=== PATIENT | male | born 1975 | race Caucasian/White ===

== ENCOUNTER 2016-08-22 13:02 | Emergency (ER) | payer OTHER ==
[~2016-08-22] VITALS: Wt 89.0 kg
--- NOTE | 2016-08-22 14:34 | ERA ---
ER Documentation Chief Complaint Date/Time DATE: 08/22/16 TIME: 14:33 Chief Complaint UPPER BACK PAIN FOR THE PAST WEEK. MILD NUMBNESS TO ARMS HPI The patient is a 40-year-old male, presenting to the ER because of upper back pain within the scapulas after heavy lifting about 5 weeks ago. He has been seen by his physician who order for an MRI. He has been seen at [facility]. He denies fever, chills, neck pain, chest pain, palpitation, diaphoresis, abdominal pain, vomiting, dysuria, diarrhea, fecal or urinary incontinence. He smokes socially, denies drinking, denies history of IV drug abuse. He complains of tingling on right first second and third finger Past medical history: None Past surgical history: Right inguinal herniorrhaphy ROS All systems reviewed and are negative except as per history of present illness. Medications Home Meds Active Scripts Tramadol HCl (Tramadol HCl) 50 Mg Tablet, 50 MG PO Q6 Y for PAIN, #20 TAB Prov:IAN ESTEVES MD 08/22/16 Carisoprodol* (Soma*) 350 Mg Tablet, 350 MG PO TID Y for MUSCLE SPASMS, #15 TAB Prov:IAN ESTEVES MD 08/22/16 Physical Exam Vitals Vital Signs Date Time Temp Pulse Resp B/P Pulse Ox O2 Delivery O2 Flow Rate FiO2 08/22/16 13:16 98.4 100 20 137/81 95 Physical Exam Const: No acute distress. Head: Atraumatic. Eyes: Normal Conjunctiva. ENT: Normal External Ears, Nose and Mouth. Neck: Full range of motion. No meningismus. Resp: Clear to auscultation bilaterally. Cardio: Regular rate and rhythm, no murmurs. Abd: Soft, non distended, normal bowel sounds, non tender. Skin: No petechiae or rashes. Back: No midline or flank tenderness. No spinal tenderness Ext: No cyanosis, or edema. Neur: Awake and alert. No focal deficit Psych: Normal Mood and Affect. Procedures/MDM MEDICAL MAKING DECISION: The patient is a 40-year-old male, presenting with acute upper back pain after heavy lifting. He is stable for outpatient follow- up. He is awaiting for MRI. The differential diagnoses considered include but are not limited to caudal equina syndrome, spinal abscess, DJD, diskitis, lumbar radiculopathy. Departure Diagnosis: Primary Impression: Back pain Condition: Good Comments He was discharged with [place] and [place] I discussed the findings with the patient. I advised the patient to follow-up with the primary physician in about 1-2 days, sooner if needed and return if any concern. The patient's blood pressure was elevated (>120/80) but appears stable without evidence of hypertension emergency or urgency. The patient was counseled about the risks of hypertension and urged to pursue outpatient monitoring and therapy within a week with their primary care physician. IAN ESTEVES MD Aug 22, 2016 14:33
[2016-08-22] MEDS ORDERED: TRAM50TA2 PO (14:44)
[2016-08-22] MEDS ORDERED: CARI350T PO (14:44)
[2016-08-22 15:20] VITALS: BP 152/79; PULSE 92; RESP 20; TEMP 98.4
== END 2016-08-22 15:24 | disposition home or self-care (01) ==
LOC: FTE 13:02
DX: S29.9XXA Unspecified injury of thorax, initial encounter (principal); X50.0XXA Overexertion from strenuous movement or load, initial encounter; Y92.9 Unspecified place or not applicable
CPT/HCPCS: 99284

== ENCOUNTER 2016-09-09 09:45 | Emergency (ER) | payer OTHER ==
[~2016-09-09] VITALS: Wt 85.0 kg
[~2016-09-09 09:45] MED LIST: CARI350T PO; TRAM50TA2 PO
[2016-09-09] MEDS ORDERED: ACETAMINOPHEN 500 MG TAB PO STA (11:34)
--- NOTE | 2016-09-09 11:45 | ERD ---
ER Documentation Chief Complaint Date/Time DATE: 09/09/16 TIME: 11:42 Chief Complaint COUGH/RUNNY NOSE X 2 WEEKS HPI This 40-year-old male who presents to the emergency department today complaining of cough for the past 2 weeks. Patient states she has also had some green nasal discharge. Patient states he smokes cigarettes and abuses drugs. States he has a history of hepatitis C. Patient indicated he is homeless. States that he feels chilled. Has any nausea vomiting or diarrhea ROS All systems reviewed and are negative except as per history of present illness. Medications Home Meds Active Scripts Fluticasone Propionate (Flonase Allergy Relief) 9.9 Ml [place].susp, 2 SPRAY NASAL DAILY, #1 BOTTLE TO EACH NOSTRIL Prov:DEVENDRA QUEEN PA-C 09/09/16 Albuterol Sulfate* (Proair HFA*) 8.5 Gm Hfa.aer.ad, 2 PUFF INH Q4, #1 INHALER Prov:DEVENDRA QUEEN PA-C 09/09/16 Acetaminophen* (Tylophen*) 500 Mg Capsule, 1 CAP PO Q6H Y for PAIN AND OR ELEVATED TEMP, #30 CAP Prov:DEVENDRA QUEEN PA-C 09/09/16 Ibuprofen* (Motrin*) 800 Mg Tab, 800 MG PO Q6, #30 TAB Prov:DEVENDRA QUEEN PA-C 09/09/16 Azithromycin* (Zithromax*) 250 Mg Tablet, 250 MG PO .ZPACK DIRECTED, #6 TAB TAKE 500 MG (2 TABS) THE FIRST DAY THEN 250 MG (1 TAB) DAYS 2-5 Prov:DEVENDRA QUEEN PA-C 09/09/16 Tramadol HCl (Tramadol HCl) 50 Mg Tablet, 50 MG PO Q6 Y for PAIN, #20 TAB Prov:IAN ESTEVES MD 08/22/16 Carisoprodol* (Soma*) 350 Mg Tablet, 350 MG PO TID Y for MUSCLE SPASMS, #15 TAB Prov:IAN ESTEVES MD 08/22/16 Physical Exam Vitals Vital Signs Date Time Temp Pulse Resp B/P Pulse Ox O2 Delivery O2 Flow Rate FiO2 09/09/16 10:00 101.2 123 18 125/71 99 Physical Exam Const: No acute distress Head: Atraumatic Eyes: Normal Conjunctiva ENT: Ears TMs normal. Nose no drainage. Throat no erythema no exudate Neck: Full range of motion..~ No meningismus. Resp: Clear to auscultation bilaterally. No Absent breath sounds. No wheezing. Cardio: Regular rate and rhythm, no murmurs Abd: Soft, non tender, non distended. Normal bowel sounds Skin: No petechiae or rashes Neur: Awake and alert Psych: Normal Mood and Affect Results 24 hrs Current Medications Medications (Trade) Dose Ordered Sig/Daniel Route PRN Reason Start Time Stop Time Status Last Admin Dose Admin Acetaminophen (Tylenol Tab) 1,000 mg ONCE STAT PO 09/09/16 11:34 09/09/16 11:35 DC 09/09/16 11:49 DIAGNOSTIC IMAGING REPORT Patient: RUSS STEPHENS : 1975 Age: 40 Sex: M MR #: [id number] DOS: 09/09/16 0000 Ordering MD: DEVENDRA QUEEN PA-C Location: [facility] Room/Bed: PROCEDURE: XR Chest. CLINICAL INDICATION: Cough/fever TECHNIQUE: Chest AP portable. COMPARISON: No comparison available. FINDINGS: The mediastinal structures are unremarkable. The heart is normal in size and configuration. The pulmonary vascularity is normal. The lung alegre are unremarkable. No consolidation is identified. The pleural spaces are unremarkable. The axial skeleton is unremarkable. IMPRESSION: No active intrathoracic disease. RPTAT: HGDB .Yash Andrade MD, MD Date Time Electronically viewed and signed by .Yash Andrade MD, MD on 09/09/2016 13:06 .B/ CC: DEVENDRA QUEEN PA-C Procedures/MDM This 40-year-old male who presents to the emergency department today complaining of cough for the past 2 weeks. Patient was febrile here in the emergency department and never did obtain a chest x-ray. Chest x-ray is negative. Lung alegre are unremarkable. There is no consolidation. Pleural spaces are unremarkable. No suspicion for PE, pneumonia, abscess, pneumothorax. Patient was given Tylenol here in the emergency department or his fever. Patient will be given a prescription for azithromycin to treat possible bronchitis. Also considered sinusitis given that the patient has been complaining of green nasal discharge however a film of antibiotic coverage given the patient's social circumstances and the fact that he is a smoker and elected to treat his cough at this time. I have low suspicion for strep pharyngitis, peritonsillar abscess, retropharyngeal abscess, otitis media, PNA, abscess, meningitis, sepsis, or other acute infectious bacterial process. Patient will also be given a prescription for Tylenol, Motrin, albuterol inhaler and Flonase as well Was counseled for greater than 3 minutes to stop smoking as well as to stop abusing drugs. At this time the patient is stable for discharge and outpatient management. They should follow up with their PCP in the next 1-2. They may return to the emergency department sooner if symptoms persist or worsen. Patient understood and agreed with the plan. Departure Diagnosis: Primary Impression: Cough Condition: DEVENDRA Arredondo PA-C Sep 09, 2016 11:45
--- NOTE | 2016-09-09 13:06 | RADRPT ---
PROCEDURE: XR Chest. CLINICAL INDICATION: Cough/fever TECHNIQUE: Chest AP portable. COMPARISON: No comparison available. FINDINGS: The mediastinal structures are unremarkable. The heart is normal in size and configuration. The pu lmonary vascularity is normal. The lung alegre are unremarkable. No consolidation is identified. The pleural spaces are unremarkable. The axial skeleton is unremarkable. IMPRESSION: No active intrathoracic disease. RPTAT: HGDB .Yash Andrade MD, MD Date Time Electronically viewed and signed by .Yash Andrade MD, MD on 09/09/2016 13:06 .B/
[2016-09-09] MEDS ORDERED: IBUP800T25 PO (13:17)
[2016-09-09] MEDS ORDERED: ALBU8.5H3 INH (13:17)
[2016-09-09] MEDS ORDERED: AZIT250T94 PO (13:17)
[2016-09-09] MEDS ORDERED: ACET500C5 PO (13:17)
[2016-09-09] MEDS ORDERED: FLUT9.9S NASAL (13:18)
== END 2016-09-09 13:57 | disposition home or self-care (01) ==
LOC: FTE 09:45
DX: R05 Cough (principal); F17.210 Nicotine dependence, cigarettes, uncomplicated
CPT/HCPCS: 71010; Z7502; Z7610

== ENCOUNTER 2016-09-27 21:20 | Emergency (ER) | payer OTHER ==
[~2016-09-27] VITALS: Ht 175.3 cm; Wt 81.2 kg
[~2016-09-27 21:20] MED LIST changes: +ACET500C5 PO; +ALBU8.5H3 INH; +AZIT250T94 PO; +FLUT9.9S NASAL; +IBUP800T25 PO
[2016-09-27 21:25] VITALS: Ht 175.3 cm; Wt 81.2 kg
--- NOTE | 2016-09-27 23:35 | ERD ---
ER Documentation Chief Complaint Date/Time DATE: 09/27/16 TIME: 23:34 Chief Complaint LUMP ON RIGHT UPPER CHEST NOTICED 3 DAYS AGO HPI 40-year-old male presents here in emergency department for complaints of a lump on the right upper chest area noticed 3 days ago. Patient describes the pain as sharp pain, 4/10 scale, is worse upon touching the area. Patient started to have the pain on affected area and feels some prominence on affected area 3 days ago after finishing treatment for bronchitis. Patient has been coughing vigorously prior to that. Patient denies any redness or swelling. Patient denies any fever or chills. Patient did not take any medications to help with symptoms. ROS All systems reviewed and are negative except as per history of present illness. Medications Home Meds Active Scripts Ibuprofen* (Motrin*) 600 Mg Tab, 600 MG PO Q6H Y for PAIN AND OR ELEVATED TEMP, #30 TAB Prov:CARMEN JACKSON NP 09/28/16 Hydrocodone/Acetaminophen (Troy 5-325 Tablet) 1 Each Tablet, 1 TAB PO Q6H Y for PAIN, #20 TAB Prov:CARMEN JACKSON NP 09/28/16 Fluticasone Propionate (Flonase Allergy Relief) 9.9 Ml [place].susp, 2 SPRAY NASAL DAILY, #1 BOTTLE TO EACH NOSTRIL Prov:DEVENDRA QUEEN PA-C 09/09/16 Albuterol Sulfate* (Proair HFA*) 8.5 Gm Hfa.aer.ad, 2 PUFF INH Q4, #1 INHALER Prov:DEVENDRA QUEEN PA-C 09/09/16 Acetaminophen* (Tylophen*) 500 Mg Capsule, 1 CAP PO Q6H Y for PAIN AND OR ELEVATED TEMP, #30 CAP Prov:DEVENDRA QUEEN PA-C 09/09/16 Ibuprofen* (Motrin*) 800 Mg Tab, 800 MG PO Q6, #30 TAB Prov:DEVENDRA QUEENC 09/09/16 Azithromycin* (Zithromax*) 250 Mg Tablet, 250 MG PO .SuellenPACK DIRECTED, #6 TAB TAKE 500 MG (2 TABS) THE FIRST DAY THEN 250 MG (1 TAB) DAYS 2-5 Prov:DEVENDRA QUEEN PA-C 09/09/16 Tramadol HCl (Tramadol HCl) 50 Mg Tablet, 50 MG PO Q6 Y for PAIN, #20 TAB Prov:IAN ESTEVES MD 08/22/16 Carisoprodol* (Soma*) 350 Mg Tablet, 350 MG PO TID Y for MUSCLE SPASMS, #15 TAB Prov:IAN ESTEVES MD 08/22/16 Allergies Allergies: Coded Allergies: No Known Allergy (Unverified , 09/27/16) PMhx/Soc Medical and Surgical Hx: pt denies Medical Hx, pt denies Surgical Hx History of Surgery: No Anesthesia Reaction: No Hx Neurological Disorder: No Hx Respiratory Disorders: No Hx Cardiac Disorders: No Hx Psychiatric Problems: No Hx Miscellaneous Medical Probl: No Hx Alcohol Use: No Hx Substance Use: No Hx Tobacco Use: No FmHx Family History: No coronary disease, No diabetes, No other Physical Exam Vitals Vital Signs Date Time Temp Pulse Resp B/P Pulse Ox O2 Delivery O2 Flow Rate FiO2 09/27/16 21:25 97.3 105 18 135/86 98 Physical Exam GENERAL: The patient is well developed and appropriate for usual state of health, in no apparent distress. CHEST: Clear to auscultation bilaterally. There are no rales, wheezes or rhonchi. HEART: Regular rate and rhythm. No murmurs, clicks, rubs or gallops. No S3 or S4. ABDOMEN: Soft, nontender and nondistended. Good bowel sounds. No rebound or guarding. No gross peritonitis. No gross organomegaly or masses. No Burdick sign or McBurney point tenderness. BACK: No midline or flank tenderness. EXTREMITIES: Equal pulses bilaterally. There is no peripheral clubbing, cyanosis or edema. No focal swelling or erythema. Full range of motion. Grossly neurovascularly intact. NEURO: Alert and oriented. Cranial nerves 2-12 intact. Motor strength in all 4 extremities with 5/5 strength. Sensation grossly intact. Normal speech and gait. SKIN: There is no apparent rash or petechia. The skin is warm and dry. HEMATOLOGIC AND LYMPHATIC: There is no evidence of excessive bruising or lymphedema. No gross cervical, axillary, or inguinal lymphadenopathy. Results 24 hrs Current Medications Medications (Trade) Dose Ordered Sig/Daniel Route PRN Reason Start Time Stop Time Status Last Admin Dose Admin Acetaminophen/ Hydrocodone Bitart (Troy (5/325)) 1 tab ONCE ONCE PO 09/28/16 01:00 09/28/16 01:01 Patient was given medication for pain here in emergency department, after treatment, patient verbalized feeling much better. Patient's pain is improved. PROCEDURE: XR Chest. CLINICAL INDICATION: Chest pain TECHNIQUE: PA and lateral views of the chest were obtained. COMPARISON: 09/09/2016 FINDINGS: The trachea central bronchi are patent. The cardiomediastinal silhouette is within normal limits. The lungs are clear. No pleural effusion or pneumothorax is identified. The visualized osseous structures are intact. RPTAT:HJJR IMPRESSION: Unremarkable two-view chest x-ray without change from the prior study. Physician Carissa Date Time Electronically viewed and signed by Oral Tim Physician on 09/28/2016 00:07 JR/ CC: CARMEN JACKSON NP Procedures/MDM Medical decision making: Patient's symptoms of a lump on the right upper chest area and the most likely consistent with costochondritis, there was no palpable lump, most likely inflamed area from coughing too much. Low suspicion for cardiopulmonary emergencies at this time. No symptoms of any abscess. No subcutaneous lesions or cystic structure noted. Patient was given for ibuprofen for mild to moderate pain, Troy for severe pain, is advised to rest, avoid heavy lifting, patient was advised to return to emergency department for any worsening symptoms. Departure Diagnosis: Primary Impression: Costochondritis Condition: Stable Patient Instructions: Costochondritis CARMEN JACKSON NP Sep 27, 2016 23:35
--- NOTE | 2016-09-28 00:07 | RADRPT ---
PROCEDURE: XR Chest. CLINICAL INDICATION: Chest pain TECHNIQUE: PA and lateral views of the chest were obtained. COMPARISON: 09/09/2016 FINDINGS: The trachea central bronchi are patent. The cardiomediastinal silhouette is within normal limits. The lungs are clear. No pleural effusion or pneumothorax is identified. The visualized osseous str uctures are intact. RPTAT:HJJR IMPRESSION: Unremarkable two-view chest x-ray without change from the prior study. Physician Carissa Date Time Electronically viewed and signed by Physician Carissa on 09/28/2016 00:07 JR/
[2016-09-28] MEDS ORDERED: IBUP-1542 PO (00:49)
[2016-09-28] MEDS ORDERED: HYDR-906 PO (00:49)
[2016-09-28] MEDS ORDERED: HYDROCODONE/APAP (5/325) TAB PO ONE (01:00)
[2016-09-28 01:10] VITALS: BP 142/69; PULSE 75; RESP 20; TEMP 98
== END 2016-09-28 01:11 | disposition home or self-care (01) ==
LOC: FTE 21:20
DX: M94.0 Chondrocostal junction syndrome [Tietze] (principal)
CPT/HCPCS: 71020; Z7502; Z7610

== ENCOUNTER 2018-07-31 04:00 | Emergency (ER) | payer MEDICAID, OTHER ==
[~2018-07-31] VITALS: Ht 175.3 cm; Wt 96.9 kg
[~2018-07-31 04:00] MED LIST changes: -ALBU8.5H3 INH; +ALBU8.5H8 INH; +AZIT250T PO; -AZIT250T94 PO; +HYDR-4011 PO; +IBUP-1542 PO; -IBUP800T25 PO; +IBUP800T48 PO
[2018-07-31 04:02] VITALS: BP 148/93; Ht 175.3 cm; Wt 96.9 kg
[2018-07-31] MEDS ORDERED: PHEN-538 PO (05:08)
[2018-07-31] MEDS ORDERED: NITR-58 PO (05:08)
--- NOTE | 2018-07-31 05:14 | ERD ---
ER Documentation Chief Complaint Chief Complaint DYSURIA, FREQUENCY X'S 1 WEEK HPI 42-year-old male presents for burning urination and increased frequency times 1 week. He denies fevers or chills. He denies any urethral discharge. Denies flank or back pain. ROS All systems reviewed and are negative except as per history of present illness. Medications Home Meds Active Scripts Phenazopyridine Hcl* (Pyridium*) 200 Mg Tab, 200 MG PO TID PRN for URINARY PAIN, #6 TAB Prov:IAN LOW DO 07/31/18 Nitrofurantoin Monohyd Macrocr* (Macrobid*) 100 Mg Capsr, 100 MG PO HS for UTI for 5 Days, CAP Prov:IAN LOW DO 07/31/18 Ibuprofen* (Motrin*) 600 Mg Tab, 600 MG PO Q6H PRN for PAIN AND OR ELEVATED TEMP, #30 TAB Prov:CARMEN JACKSON NP 09/28/16 Hydrocodone/Acetaminophen ([place] 5-325 Tablet) 1 Each Tablet, 1 TAB PO Q6H PRN for PAIN, #20 TAB Prov:CARMEN JACKSON NP 09/28/16 Fluticasone Propionate (Flonase Allergy Relief) 9.9 Ml [place].susp, 2 SPRAY NASAL DAILY, #1 BOTTLE TO EACH NOSTRIL Prov:DEVENDRA QUEEN PA-C 09/09/16 Albuterol Sulfate* (Proair HFA*) 8.5 Gm Hfa.aer.ad, 2 PUFF INH Q4, #1 INHALER Prov:DEVENDRA QUEEN PA-C 09/09/16 Acetaminophen* (Tylophen*) 500 Mg Capsule, 1 CAP PO Q6H PRN for PAIN AND OR ELEVATED TEMP, #30 CAP Prov:DEVENDRA QUEEN PA-C 09/09/16 Ibuprofen* (Motrin*) 800 Mg Tab, 800 MG PO Q6, #30 TAB Prov:DEVENDRA QUEEN PA-C 09/09/16 Azithromycin* (Zithromax*) 250 Mg Tablet, 250 MG PO .SuellenPACK DIRECTED, #6 TAB TAKE 500 MG (2 TABS) THE FIRST DAY THEN 250 MG (1 TAB) DAYS 2-5 Prov:DEVENDRA QUEEN PA-C 09/09/16 Tramadol HCl (Tramadol HCl) 50 Mg Tablet, 50 MG PO Q6 PRN for PAIN, #20 TAB Prov:IAN ESTEVES MD 08/22/16 Carisoprodol* (Soma*) 350 Mg Tablet, 350 MG PO TID PRN for MUSCLE SPASMS, #15 TAB Prov:IAN ESTEVES MD 08/22/16 Allergies Allergies: Coded Allergies: No Known Allergy (Unverified , 09/27/16) PMhx/Soc History of Surgery: No Anesthesia Reaction: No Hx Neurological Disorder: No Hx Respiratory Disorders: No Hx Cardiac Disorders: No Hx Psychiatric Problems: No Hx Miscellaneous Medical Probl: No Hx Alcohol Use: No Hx Substance Use: No Hx Tobacco Use: No Physical Exam Vitals Vital Signs Date Temp Pulse Resp B/P (MAP) Pulse Ox O2 O2 Flow FiO2 Time Delivery Rate 07/31/18 97 18 148/93 95 04:02 (111) Physical Exam Const: No acute distress Resp: Clear to auscultation bilaterally Cardio: Regular rate and rhythm, no murmurs Abd: Soft, non tender, non distended. Normal bowel sounds Skin: No petechiae or rashes Back: No midline or flank tenderness Ext: No cyanosis, or edema Neur: Awake and alert Psych: Normal Mood and Affect Results 24 hrs Laboratory Tests Test 07/31/18 04:15 Urine Color YELLOW Urine Clarity CLEAR Urine pH 5.0 Urine Specific [place] 1.028 Urine Ketones 1+ mg/dL Urine Nitrite NEGATIVE mg/dL Urine Bilirubin NEGATIVE mg/dL Urine Urobilinogen NEGATIVE mg/dL Urine Leukocyte Esterase NEGATIVE Priya/ul Urine Microscopic RBC 1 /HPF Urine Microscopic WBC 1 /HPF Urine Bacteria FEW /HPF Urine Mucus FEW /HPF Urine Hemoglobin NEGATIVE mg/dL Urine Glucose NEGATIVE mg/dL Urine Total Protein 1+ mg/dl Procedures/MDM Medical Decision Making: Differential diagnosis includes but not limited to urinary tract infection, STD, prostatitis. Patient appeared well on physical examination, nontoxic appearing. UA did not indicate infection however given symptoms consistent with a UTI, patient given a prescription for Macrobid and Pyridium. Patient advised to follow up with PCP in 1-2 days. Patient advised to return to ED for new or worsening symptoms. Patient stable on discharge from the ED. Disclaimer: Inadvertent spelling and grammatical errors are likely due to EHR/dictation software use and do not reflect on the overall quality of patient care. Also, please note that the electronic time recorded on this note does not necessarily reflect the actual time of the patient encounter. Departure Diagnosis: Primary Impression: UTI (urinary tract infection) Urinary tract infection type: acute cystitis Hematuria presence: without hematuria Qualified Codes: N30.00 - Acute cystitis without hematuria Condition: Fair Patient Instructions: Understanding Urinary Tract Infections (UTIs) Referrals: [facility] YOU HAVE RECEIVED A MEDICAL SCREENING EXAM AND THE RESULTS INDICATE THAT YOU DO NOT HAVE A CONDITION THAT REQUIRES URGENT TREATMENT IN THE EMERGENCY DEPARTMENT. FURTHER EVALUATION AND TREATMENT OF YOUR CONDITION CAN WAIT UNTIL YOU ARE SEEN IN YOUR DOCTORS OFFICE WITHIN THE NEXT 1-2 DAYS. IT IS YOUR RESPONSIBILITY TO MAKE AN APPOINTMENT FOR FOLOW-UP CARE. IF YOU HAVE A PRIMARY DOCTOR --you should call your primary doctor and schedule an appointment IF YOU DO NOT HAVE A PRIMARY DOCTOR YOU CAN CALL OUR PHYSICIAN REFERRAL HOTLINE AT IF YOU CAN NOT AFFORD TO SEE A PHYSICIAN YOU CAN CHOSE FROM THE FOLLOWING [facility] [address] [facility] [facility] [place] [address] [facility] [facility] [address] [facility] [facility] [address] [facility]. [facility] [address] [facility]. [facility]. [address] Additional Instructions: Call your primary care doctor TOMORROW for an appointment during the next 1-2 days.See the doctor sooner or return here if your condition worsens before your appointment time. IAN LOW DO Jul 31, 2018 05:14
[2018-07-31 05:21] VITALS: PULSE 112; RESP 20
== END 2018-07-31 05:15 | disposition home or self-care (01) ==
LOC: FTE 04:00
DX: N30.00 Acute cystitis without hematuria (principal)
CPT/HCPCS: 81001; Z7502; 99283